=== PATIENT | female | born 1935 | race Caucasian/White ===

== ENCOUNTER 2017-11-17 07:54 | Day surgery (SDC) | payer MEDICARE, OTHER ==
[~2017-11-17] VITALS: Ht 157.5 cm; Wt 105.9 kg
[~2017-11-17 07:54] MED LIST: ALBU90AE INH; ASPI-496 PO; BUME1TAB21 PO; BUPIVACAINE/PF 0.5% ONE; CETI10CA PO; DICL75TA2 PO; EPINEPHRINE 1 MG/ML, 1ML ONE; FLUT1DIS3 INH; ISOSULFAN BLUE 10 MG/ML, 5ML IV ONE; LACT1CAP37 PO; MAGN71.5 PO; POTA20TA6 PO; TIOT18CA INH; [UNRECOGNIZED DRUG - OTHER] PO; colon health PO
[2017-11-17] MEDS ORDERED: LIDOCAINE-MPF 1%, 2ML ONE (08:26)
[2017-11-17] MEDS ORDERED: FENTANYL PF 250 MCG/5ML ONE (08:48)
[2017-11-17] MEDS ORDERED: PROPOFOL 10 MG/ML, 20ML ONE (08:49)
[2017-11-17] MEDS ORDERED: ROCURONIUM 10MG/ML,5ML ONE (08:49)
[2017-11-17] MEDS ORDERED: NEOSTIGMINE 1 MG/ML, 10ML ONE (08:50)
[2017-11-17] MEDS ORDERED: GLYCOPYRROLATE 0.4 MG/2 ML, 2ML ONE (08:50)
[2017-11-17] MEDS ORDERED: CEFAZOLIN 1,000 MG ONE ×2 (08:51)
[2017-11-17] MEDS ORDERED: WATER-INJECTION,STERILE 10 ML IV ONE (08:51)
[2017-11-17] MEDS ORDERED: DEXAMETHASONE 4 MG/ML, 1ML ONE ×2 (09:12)
[2017-11-17] MEDS ORDERED: LACTATED RINGERS 1,000 ML IV SCH (09:20)
[2017-11-17 09:22] VITALS: BP 187/83
[2017-11-17] MEDS ORDERED: GABAPENTIN 300 MG CAPSULE PO ONE (09:30)
[2017-11-17] MEDS ORDERED: SCOPOLAMINE PATCH, 1.5MG PATCH.TD72 TD ONE (09:30)
[2017-11-17] MEDS ORDERED: ACETAMINOPHEN 500 MG TABLET PO ONE (09:30)
[2017-11-17] MEDS ORDERED: ONDANSETRON ODT 8 MG PO ONE (09:30)
[2017-11-17] MEDS ORDERED: MEPERIDINE/PF 25MG/0.5ML IVPush PRN (10:00)
[2017-11-17] MEDS ORDERED: PROMETHAZINE 12.5 MG SUPP PR PRN (10:00)
[2017-11-17] MEDS ORDERED: PROMETHAZINE 25 MG SUPP PR PRN (10:00)
[2017-11-17] MEDS ORDERED: HYDROmorphone 1 MG/ML, 1ML IV PRN (10:00)
[2017-11-17] MEDS ORDERED: ALBUTEROL/IPRATROPIUM 2.5MG/0.5MG, 3 ML NPPB PRN (10:00)
[2017-11-17] MEDS ORDERED: PROMETHAZINE 25 MG/ML, 1ML IV PRN (10:00)
[2017-11-17] MEDS ORDERED: LABETALOL 5MG/ML, 20ML IV PRN (10:00)
[2017-11-17] MEDS ORDERED: ALBUTEROL SULFATE 2.5 MG/3 ML NPPB PRN (10:00)
[2017-11-17] MEDS ORDERED: ONDANSETRON ODT 8 MG PO PRN (10:00)
[2017-11-17] MEDS ORDERED: MORPHINE SULFATE 4 MG/ML, 1ML IVPush PRN (10:00)
[2017-11-17] MEDS ORDERED: FENTANYL PF 100 MCG/2ML IV PRN (10:00)
[2017-11-17] MEDS ORDERED: hydrALAzine 20 MG/ML, 1ML IV PRN (10:00)
[2017-11-17] MEDS ORDERED: OXYcodone 5 MG/5 ML ORAL.SOL UDC PO PRN (10:00)
[2017-11-17] MEDS ORDERED: ONDANSETRON ODT 8 MG ONE (11:56)
== END 2017-11-17 18:33 | disposition home or self-care (01) ==
LOC: OUT 07:54 → EDSTATUS 10:00 → OUT 18:33
PROVIDERS: ATTEND Surgery
DX: C50.911 Malignant neoplasm of unspecified site of right female breast (principal); J44.9 Chronic obstructive pulmonary disease, unspecified; E66.9 Obesity, unspecified; Z88.8 Allergy status to other drugs, medicaments and biological substances; Z95.1 Presence of aortocoronary bypass graft; Z68.41 Body mass index [BMI] 40.0-44.9, adult
CPT/HCPCS: 19301; 38525; 38792; 76098; 88307; 88329; 88333; A9541; J0171; J0690; J1100; J2704; J2710; J3010; J3490; J7120; Q0162

== ENCOUNTER → 2017-12-09 | Outpatient (CLI) | payer MEDICARE, OTHER ==
[~2017-12-09] MED LIST changes: -BUPIVACAINE/PF 0.5% ONE; -EPINEPHRINE 1 MG/ML, 1ML ONE; -ISOSULFAN BLUE 10 MG/ML, 5ML IV ONE
== END | disposition home or self-care (01) ==
LOC: ROC 09:45
PROVIDERS: ATTEND Radiology Radiation Oncology
DX: Z08 Encounter for follow-up examination after completed treatment for malignant neoplasm (principal); C50.911 Malignant neoplasm of unspecified site of right female breast; N63.10 Unspecified lump in the right breast, unspecified quadrant; E66.01 Morbid (severe) obesity due to excess calories; Z17.0 Estrogen receptor positive status [ER+]; Z85.3 Personal history of malignant neoplasm of breast; Z80.3 Family history of malignant neoplasm of breast; Z95.1 Presence of aortocoronary bypass graft; Z79.82 Long term (current) use of aspirin
CPT/HCPCS: G0463

== ENCOUNTER → 2018-03-02 | Outpatient (CLI) | payer MEDICARE, OTHER | END | disposition home or self-care (01) | LOC: CFH 11:05 | PROVIDERS: ATTEND Internal Medicine Hematology & Oncology | DX: Z13.820 Encounter for screening for osteoporosis (principal); M85.80 Other specified disorders of bone density and structure, unspecified site; C50.411 Malignant neoplasm of upper-outer quadrant of right female breast; J44.9 Chronic obstructive pulmonary disease, unspecified; Z78.0 Asymptomatic menopausal state | CPT/HCPCS: 77080 ==

== ENCOUNTER → 2018-03-02 | Outpatient (CLI) | payer MEDICARE, OTHER | END | disposition home or self-care (01) | LOC: ROC 07:40 | PROVIDERS: ATTEND Radiology Radiation Oncology | DX: C50.511 Malignant neoplasm of lower-outer quadrant of right female breast (principal) | CPT/HCPCS: G0463 ==

== ENCOUNTER → 2018-05-24 | Outpatient (CLI) | payer MEDICARE, OTHER | END | disposition home or self-care (01) | LOC: CFH 12:18 | PROVIDERS: ATTEND Radiology Radiation Oncology | DX: C50.511 Malignant neoplasm of lower-outer quadrant of right female breast (principal); Z85.3 Personal history of malignant neoplasm of breast; I10 Essential (primary) hypertension | CPT/HCPCS: 77065 ==

== ENCOUNTER 2018-10-23 10:54 | Outpatient (CLI) | payer MEDICARE, OTHER ==
[~2018-10-23 10:54] MED LIST changes: -DICL75TA2 PO; +DICL75TA3 PO
== END 2018-10-23 23:59 | disposition home or self-care (01) ==
LOC: CFH 10:54
PROVIDERS: ATTEND Internal Medicine Hematology & Oncology
DX: Z12.31 Encounter for screening mammogram for malignant neoplasm of breast (principal)
CPT/HCPCS: 77067

== ENCOUNTER 2019-01-09 12:43 | Outpatient (CLI) | payer MEDICARE, OTHER ==
[2019-01-09] MEDS ORDERED: GADOBUTROL 10 MMOL/10 ML VIAL ONE (13:00)
== END 2019-01-09 23:59 | disposition home or self-care (01) ==
LOC: CFH 12:43
PROVIDERS: ATTEND Internal Medicine Hematology & Oncology
DX: C50.411 Malignant neoplasm of upper-outer quadrant of right female breast (principal); N64.89 Other specified disorders of breast
CPT/HCPCS: A9585; C8908; C8937

== ENCOUNTER 2019-11-28 11:42 | Outpatient (CLI) | payer MEDICARE, OTHER | END 2019-11-28 23:59 | disposition home or self-care (01) | LOC: CFH 11:42 | PROVIDERS: ATTEND Internal Medicine Hematology & Oncology | DX: Z12.31 Encounter for screening mammogram for malignant neoplasm of breast (principal) | CPT/HCPCS: 77063; 77067 ==

== ENCOUNTER → 2020-03-05 | Outpatient (CLI) | payer MEDICARE, OTHER | END | disposition home or self-care (01) | LOC: CFH 10:15 | PROVIDERS: ATTEND Internal Medicine Hematology & Oncology | DX: M85.89 Other specified disorders of bone density and structure, multiple sites (principal); C50.411 Malignant neoplasm of upper-outer quadrant of right female breast; Z78.0 Asymptomatic menopausal state | CPT/HCPCS: 77080 ==